=== PATIENT | female | born 1950 | race Caucasian/White ===

== ENCOUNTER → 2016-06-06 | Outpatient (CLI) | payer OTHER ==
--- NOTE | 2016-06-06 11:30 | MM ---
Reason for exam: history of breast cancer, mastectomy. Last mammogram was performed 1 year and 1 month ago. History: Patient is postmenopausal and has history of breast cancer at age 54. Family history of breast cancer in maternal grandmother at age 60. Silicone gel implant in the right breast, 2008. Reconstruction of the right breast, 2008. Reduction of the left breast, 2008. Mastectomy of the right breast, April 18, 2005. Malignant right mammotome panel of the right breast, March 24, 2005. Chemotherapy, 2005. Benign excisional biopsy of the right breast, February 26, 1998. Took tamoxifen for 7 years beginning at age 54. Physical Findings: Nurse did not find any significant physical abnormalities on exam. MG Diagnostic Mammo LT w CAD CC, MLO, ML, and XCCL view(s) were taken of the left breast. Prior study comparison: May 18, 2015, left breast MG 3d diag mammo w/cad LT. May 14, 2014, left breast MG diagnostic mammo LT w CAD. There are scattered fibroglandular densities. No significant new findings when compared with previous films. These results were verbally communicated with the patient and result sheet given to the patient on 06/06/16. ASSESSMENT: Benign, BI-RAD 2 RECOMMENDATION: Follow-up diagnostic mammogram of the left breast in 1 year.
== END | disposition home or self-care (01) ==
LOC: RADMAMWWP 10:22
PROVIDERS: ATTEND Family Medicine
DX: Z85.3 Personal history of malignant neoplasm of breast (principal)

== ENCOUNTER → 2017-06-07 | Outpatient (CLI) | payer MEDICARE ==
--- NOTE | 2017-06-07 11:06 | MM ---
Reason for exam: additional evaluation requested from prior study. Last mammogram was performed 1 year ago. History: Patient is postmenopausal and has history of breast cancer at age 54. Family history of breast cancer in maternal grandmother at age 60. Silicone gel implant in the right breast, 2008. Reconstruction of the right breast, 2008. 2 reductions of the left breast, 2008. Mastectomy of the right breast, April 18, 2005. Malignant right mammotome panel of the right breast, March 24, 2005. Chemotherapy, 2005. Benign excisional biopsy of the right breast, February 26, 1998. Took tamoxifen for 7 years beginning at age 54. Physical Findings: Nurse did not find any significant physical abnormalities on exam. MG Diagnostic Mammo LT w CAD CC and MLO view(s) were taken of the left breast. Prior study comparison: June 06, 2016, left breast MG diagnostic mammo LT w CAD. May 18, 2015, left breast MG 3d diag mammo w/cad LT. There are scattered fibroglandular densities. Post mammoplasty changes. Small area of fat necrosis calcifications stable. No significant new findings when compared with previous films. These results were verbally communicated with the patient and result sheet given to the patient on 06/07/17. ASSESSMENT: Negative, BI-RAD 1 RECOMMENDATION: Routine screening mammogram of the left breast in 1 year.
== END | disposition home or self-care (01) ==
LOC: RADMAMWWP 08:57
PROVIDERS: ATTEND Internal Medicine Hematology & Oncology
DX: Z08 Encounter for follow-up examination after completed treatment for malignant neoplasm (principal); Z85.3 Personal history of malignant neoplasm of breast
CPT/HCPCS: 77065

== ENCOUNTER → 2018-06-11 | Outpatient (CLI) | payer MEDICARE ==
--- NOTE | 2018-06-12 08:52 | MM ---
Reason for exam: screening (asymptomatic). Last mammogram was performed 1 year ago. History: Patient is postmenopausal and has history of breast cancer at age 54. Family history of breast cancer in maternal grandmother at age 60. Silicone gel implant in the right breast, 2008. Reconstruction of the right breast, 2008. 2 reductions of the left breast, 2008. Mastectomy of the right breast, April 18, 2005. Malignant right mammotome panel of the right breast, March 24, 2005. Chemotherapy, 2005. Benign excisional biopsy of the right breast, February 26, 1998. Took tamoxifen for 7 years beginning at age 54. Physical Findings: A clinical breast exam by your physician is recommended on an annual basis and results should be correlated with mammographic findings. MG Screen Jerad Unilateral W/Cad Bilateral CC and MLO view(s) were taken. Prior study comparison: June 07, 2017, left breast MG diagnostic mammo LT w CAD. June 06, 2016, left breast MG diagnostic mammo LT w CAD. Finding #1: There is a 7 mm equal density (isodense) mass in the left breast. Finding #2: There are typically benign calcifications in the left breast. ASSESSMENT: Incomplete: need additional imaging evaluation, BI-RAD 0 RECOMMENDATION: Special view mammogram of the left breast. If lesion persists on supplemental views, image directed ultrasound is recommended. [facility] will attempt to contact patient to return for supplemental views and ultrasound if indicated.
== END | disposition home or self-care (01) ==
LOC: RADMAMWWP 12:25
PROVIDERS: ATTEND Internal Medicine Hematology & Oncology
DX: Z12.31 Encounter for screening mammogram for malignant neoplasm of breast (principal); Z90.11 Acquired absence of right breast and nipple
CPT/HCPCS: 77067

== ENCOUNTER → 2018-06-18 | Outpatient (CLI) | payer MEDICARE ==
--- NOTE | 2018-06-18 13:27 | MM ---
Reason for exam: additional evaluation requested from abnormal screening. Last mammogram was performed less than 1 month ago. History: Patient is postmenopausal and has history of breast cancer at age 54. Family history of breast cancer in maternal grandmother at age 60. Silicone gel implant in the right breast, 2008. Reconstruction of the right breast, 2008. 2 reductions of the left breast, 2008. Radiation therapy of the left breast, 2008. Mastectomy of the right breast, April 18, 2005. Malignant right mammotome panel of the right breast, March 24, 2005. Chemotherapy, 2005. Benign excisional biopsy of the right breast, February 26, 1998. Took tamoxifen for 7 years beginning at age 54. Physical Findings: Nurse Summary: 0.5 x 0.5cm nodule in the left breast at 10 o'clock (nurse ts). MG Work Up Mamm w CAD LT Spot compression CC, spot compression MLO, and LM view(s) were taken of the left breast. Prior study comparison: June 11, 2018, bilateral MG screen jennifer unilateral w/cad. June 07, 2017, left breast MG diagnostic mammo LT w CAD. There are scattered fibroglandular densities. There is no discrete abnormality. These results were verbally communicated with the patient and result sheet given to the patient on 06/18/18. ASSESSMENT: Benign, BI-RAD 2 RECOMMENDATION: Follow-up diagnostic mammogram of the left breast in 1 year. Manage patient on a clinical basis.
== END ==
LOC: RADMAMWWP 12:34
PROVIDERS: ATTEND Internal Medicine Hematology & Oncology
DX: R92.8 Other abnormal and inconclusive findings on diagnostic imaging of breast (principal)
CPT/HCPCS: 77065

== ENCOUNTER → 2018-10-12 | Outpatient (CLI) | payer MEDICARE ==
--- NOTE | 2018-10-12 13:24 | CT ---
EXAMINATION TYPE: CT sinus wo con DATE OF EXAM: 10/12/2018 COMPARISON: None HISTORY: sinus infection, congestion, drainage, headache. CT DLP: 667.3 mGycm. Automated Exposure Control for Dose Reduction was Utilized. TECHNIQUE: CT scan of the sinuses is performed without contrast, axial images are obtained, coronal r eformatted images are also reviewed. FINDINGS: The paranasal sinuses are remarkable for extensive inflammatory change involving the bilat eral maxillary sinus, right frontal sinus, ethmoid air cells and sphenoid sinus. Ostiomeatal units sh ow normal soft tissue bilaterally. The ostiomeatal complex is patent bilaterally on the coronal image s. Visualized portion of mastoid air cells show no abnormal opacification. The globes are intact bilate rally. IMPRESSION: Pansinusitis.
== END | disposition home or self-care (01) ==
LOC: RADCTMAIN 12:08
PROVIDERS: ATTEND Internal Medicine
DX: J32.4 Chronic pansinusitis (principal)
CPT/HCPCS: 70486

== ENCOUNTER → 2019-01-28 | Outpatient (CLI) | payer MEDICARE ==
--- NOTE | 2019-01-29 12:57 | US ---
EXAMINATION TYPE: US thyroid st tissue head/neck DATE OF EXAM: 01/28/2019 COMPARISON: 08/19/2010 CLINICAL HISTORY: 68-year-old female R94.6 Abn thyroid labs. TECHNIQUE: Multiple sonographic images of the thyroid gland are obtained. FINDINGS: GLAND SIZE: Right Lobe: 7.5 x 2.1 x 3.0 cm Overall Parenchyma: heterogenous Left Lobe: 7.1 x 2.5 x 2.5cm Overall Parenchyma: heterogeneous Isthmus Thickness: 0.6 cm NODULES RIGHT: # of nodules measured on right: 1. 1.6 X 1.2 x 1.4 cm hypoechoic mixed nodule at the upper pole with well-defined margins. This no dule is wider than tall and shows no intranodular vascularity. Prior size: 0.7 x 0.5 x 0.7 cm 2. 1.4 X 0.8 x 1.4 cm hypoechoic mixed nodule at the upper pole with well-defined margins. This nodu le is wider than tall and shows no intranodular vascularity. Prior size: 0.8 x 0.6 x 0.8 cm 3. 1.1 X 0.6 x 0.8 cm isoechoic mixed nodule at the medial pole with poorly defined margins. This n odule is taller than wide and shows no intranodular vascularity. Prior size: 0.8 x 0.5 x 1.0 cm 4. 1.0 X 0.6 x 1.0 cm hypoechoic mixed nodule at the lower pole with well-defined margins. This nod ule is wider than tall and shows intranodular vascularity. Prior size: 1.0 x 0.8 x 0.8 cm LEFT: # of nodules measured on left: 1. 1.6 X 1.1 x 1.5 cm isoechoic mixed nodule at the upper pole with well-defined margins. This nod ule is wider than tall and shows no intranodular vascularity. Not clearly seen previously. 2. 1.6 X 1.4 x 1.3 cm hypoechoic mixed nodule at the mid pole with poorly defined margins; peripher al calcification. This nodule is wider than tall and shows no intranodular vascularity. Prior size 1.7 x 1.6 x 1.5 cm. ISTHMUS: # of nodules measured in the isthmus: 0 Bilateral neck scanned, no evidence of lymphadenopathy. Patient has innumerable nodules bilaterally. Largest on each side measured. IMPRESSION: 1. Findings suggest multinodular goiter with innumerable bilateral nodules. The largest are measured on each side measuring up to 1.6 cm on the right and 1.6 cm on the left. 2. Overall, these have increased in size to varying degrees as compared to 2011. For example, the dom inant 1.6 cm nodule in the right upper pole previously measured 7 mm. A dominant 1.6 cm nodule in the left upper pole was not clearly seen previously. Additional follow-up as indicated. 3. The other dominant 1.6 cm left midpole, partially calcified nodule appears to have remained stable .
== END | disposition home or self-care (01) ==
LOC: RADUSWWP 13:33
PROVIDERS: ATTEND Internal Medicine
DX: E04.1 Nontoxic single thyroid nodule (principal)
CPT/HCPCS: 76536

== ENCOUNTER → 2019-04-18 | Outpatient (CLI) | payer MEDICARE ==
[2019-04-18 16:17] LABS: T4, Free (Free Thyroxine) 1.1 ng/dL (0.80-1.80)
== END | disposition home or self-care (01) ==
LOC: LABWHC1 09:31
PROVIDERS: ATTEND Internal Medicine Endocrinology, Diabetes & Metabolism
DX: E04.2 Nontoxic multinodular goiter (principal)
CPT/HCPCS: 36415; 84439; 84443; 84480

== ENCOUNTER → 2019-10-22 | Outpatient (CLI) | payer MEDICARE ==
--- NOTE | 2019-10-22 11:09 | MM ---
Reason for exam: additional evaluation requested from prior study. Last mammogram was performed 1 year and 4 months ago. History: Patient is postmenopausal and has history of breast cancer at age 54. Family history of breast cancer in maternal grandmother at age 60. Silicone gel implant in the right breast, 2008. Reconstruction of the right breast, 2008. 2 reductions of the left breast, 2008. Radiation therapy of the left breast, 2008. Mastectomy of the right breast, April 18, 2005. Malignant right mammotome panel of the right breast, March 24, 2005. Chemotherapy, 2005. Benign excisional biopsy of the right breast, February 26, 1998. Took hormonal contraceptives for 15 years. Took tamoxifen for 7 years beginning at age 54. Physical Findings: Nurse did not find any significant physical abnormalities on exam. MG 3D Diag Mammo W/Cad LT CC and MLO view(s) were taken of the left breast. Prior study comparison: June 18, 2018, left breast MG work up mamm w CAD LT. June 11, 2018, bilateral MG screen jennifer unilateral w/cad. The breast tissue is heterogeneously dense. This may lower the sensitivity of mammography. Benign appearing calcifications in the left breast. There is chronic nodularity in the left breast, stable, benign lymph node. These results were verbally communicated with the patient and result sheet given to the patient on 10/22/19. ASSESSMENT: Benign, BI-RAD 2 RECOMMENDATION: Follow-up diagnostic mammogram of the left breast in 1 year.
== END | disposition home or self-care (01) ==
LOC: RADMAMWWP 10:21
PROVIDERS: ATTEND Internal Medicine Hematology & Oncology
DX: Z08 Encounter for follow-up examination after completed treatment for malignant neoplasm (principal); Z85.3 Personal history of malignant neoplasm of breast
CPT/HCPCS: 77065; G0279; 77061

== ENCOUNTER 2020-07-15 07:53 | Day surgery (SDC) | payer MEDICARE ==
[2020-07-14 10:05] VITALS: BMI 19.3
--- NOTE | 2020-07-14 19:20 | P.GSHP ---
History of Present Illness H&P Date: 07/14/20 69 yo femae who recetly presented to [facility] with severe left flank pain. SHe was evaluated and found to have a 13mm left mid ureteral stone with chronic , mod- severe hydronephrosis. THis is the patients first stone. She denies previous problems with pain, hematuria and utis. We discussed treatment options. GIven the size of the stone and the amount of hydronephrosis I recommend a left ureteroscopy with laser lithotripsy and stent placement.The risks of chronic damage infection , bleeding , pain and stricture have been explained understood and accepted. - Constitutional Constitutional: Denies chills, Denies fever - EENT Eyes: denies blurred vision, denies pain Ears, nose, mouth and throat: Denies headache, Denies sore throat - Cardiovascular Cardiovascular: Denies chest pain, Denies shortness of breath - Respiratory Respiratory: Denies cough, Denies 7 - Gastrointestinal Gastrointestinal: Denies abdominal pain, Denies diarrhea, Denies nausea, Denies vomiting - Genitourinary (Female) Genitourinary: Denies dysuria, Denies hematuria - Genitourinary (Male) Genitourinary: Denies dysuria, Denies hematuria - Musculoskeletal Musculoskeletal: Denies myalgias - Integumentary Integumentary: Denies pruritus, Denies rash - Neurological Neurological: Denies numbness, Denies weakness - Psychiatric Psychiatric: Denies anxiety, Denies depression - Endocrine Endocrine: Denies fatigue, Denies weight change Past Medical History Past Medical History: Cancer, Thyroid Disorder Additional Past Medical History / Comment(s): received both covid vaccines,kidney stones,breast CA 2005-no radiation-received chemo History of Any Multi-Drug Resistant Organisms: None Reported Additional Past Surgical History / Comment(s): rt mastectomy,rt breast breast reconstruction Past Anesthesia/Blood Transfusion Reactions: No Reported Reaction Smoking Status: Former smoker - Past Family History Mother Additional Family Medical History / Comment(s): aneurysm Father Additional Family Medical History / Comment(s): bone CA Medications and Allergies Home Medications Medication Instructions Recorded Confirmed Type Calcium Carbonate/Vitamin D3 1 each PO DAILY 07/14/20 07/14/20 History [Calcium 600-Vit D3 12.5 Mcg (500 Iu)] HYDROcodone/APAP 5-325MG [[place] 1 tab PO Q6HR PRN 07/14/20 07/14/20 History 5-325] Ibuprofen 600 mg PO Q6H PRN 07/14/20 07/14/20 History Multivit-Min/Iron/Folic/Lutein 1 each PO DAILY 07/14/20 07/14/20 History [Centrum Silver Women Tablet] Pravastatin Sodium [Pravachol] 20 mg PO DAILY 07/14/20 07/14/20 History Tamsulosin HCl [Flomax] 0.4 mg PO QAM 07/14/20 07/14/20 History Venlafaxine HCl ER [Effexor Xr] 75 mg PO QAM 07/14/20 07/14/20 History methIMAzole [Tapazole] 5 mg PO QAM 07/14/20 07/14/20 History Allergies Allergy/AdvReac Type Severity Reaction Status Date / Time No Known Allergies Allergy Verified 07/14/20 09:51 Surgical - Exam - General well developed, well nourished, no distress - Eyes PERRL - ENT normal pinna, no hearing loss - Neck no masses, trachea midline - Respiratory normal expansion, normal respiratory effort - Cardiovascular Rhythm: regular - Abdomen Abdomen: soft, non tender - Integumentary no rash, no growths - Neurologic normal coordination, normal sensation - Musculoskeletal normal gait, normal posture - Psychiatric oriented to time, oriented to person, oriented to place, speech is normal, memory intact Results - Imaging Abdominal x-ray: report reviewed, image reviewed CT scan - abdomen: report reviewed, image reviewed CT scan - pelvis: report reviewed, image reviewed Assessment and Plan Assessment: Impression: left ureteral calculous with chronic and severe hydronephrosis. Plan: Left ureteroscopy with laser lithotripsy and stent placement
[~2020-07-15 07:53] MED LIST: LACTATED RINGERS 1,000 ML IV SCH
--- NOTE | 2020-07-15 08:09 | XR ---
EXAMINATION TYPE: XR KUB DATE OF EXAM: 07/15/2020 8:02 AM CLINICAL HISTORY: Kidney stones. TECHNIQUE: Single supine KUB image of the abdomen is obtained. COMPARISON: None. FINDINGS: There is a 15 mm oval density over the left mid sacrum inferior sacroiliac joint level coul d reflect large distal ureter calculus. No additional renal calculi clearly seen bilaterally. Moderat e overlying colonic fecal material makes evaluation suboptimal. Overall nonobstructive bowel gas pattern. Visualized osseous structures are intact. Rounded 8 mm dens ity right upper quadrant could reflect a gallstone. IMPRESSION: As above.
[2020-07-15 08:25] VITALS: RESP 16
[2020-07-15] MEDS ORDERED: LIDOCAINE 1% (10MG/ML) FOR IV START INTRADERMA ONE (08:41)
[2020-07-15] MEDS ORDERED: ONDANSETRON 4 MG/2 ML VIAL ONE (08:46)
[2020-07-15] MEDS ORDERED: DEXAMETHASONE SOD PHOSPHATE 4 MG/ML 1 ML VIAL IVP ONE (08:50)
[2020-07-15] MEDS ORDERED: ONDANSETRON 4 MG/2 ML VIAL IVP ONE (08:50)
[2020-07-15] MEDS ORDERED: LIDOCAINE 1% INJ 10MG/ML (20 ML MDV) ONE (09:13)
[2020-07-15] MEDS ORDERED: PHENYLEPHRINE-0.9% NACL SYG 1,000 MCG/10 ML SYRINGE ONE (09:13)
[2020-07-15] MEDS ORDERED: fentaNYL (PF) 50 MCG/ML 2 ML AMP ONE (09:13)
[2020-07-15] MEDS ORDERED: PROPOFOL 10 MG/ML 20 ML VIAL IV ONE (09:13)
[2020-07-15] MEDS ORDERED: SUCCINYLCHOLINE CHLORIDE 100 MG/5 ML SYR IV ONE (09:13)
[2020-07-15] MEDS ORDERED: MIDAZOLAM 2 MG/2 ML VIAL ONE (09:13)
[2020-07-15] MEDS ORDERED: LACTATED RINGERS 1,000 ML IV ONE (10:18)
--- NOTE | 2020-07-15 10:27 | P.OP ---
Date of Procedure: 07/15/20 Preoperative Diagnosis: Left ureteral calculus, large Postoperative Diagnosis: Same Procedure(s) Performed: Cystoscopy, left ureteroscopy with laser lithotripsy, placement of 6 x 24 double-J catheter Anesthesia: MARCE Surgeon: Jude Bob Estimated Blood Loss (ml): 0 Pathology: other (Stone) Condition: stable Disposition: PACU Indications for Procedure: The patient is 69. She developed severe left flank pain. She came in the emergency room with a 1.3 cm midureteral stone with what appeared to be chronic obstruction. She comes ureteroscopy laser lithotripsy Description of Procedure: Patient brought to the operative suite. She is given a general anesthetic. She's placed lithotomy position with sterile prep and drape. Cystoscopy Foroblique lens and 21-Albanian sheath identifies a normal urethra. The ureteral orifices normal. The bladder mucosa is unremarkable. The ureteral orifice on the left is too small to allow the 7-Albanian mini ureteroscope to intubate that. I thus dilated the orifice with a 10 cone-tip catheter. I then pass a semirigid scope up to the stone. With the 360 laser probe into tiny fragments and flushed out of the ureter. There are some larger fragments that remained in are basketed with a 1.90 tip stone basket. At the end of procedure other than sand there are no remaining stones that. Through the ureteroscope and 035 wires passed up into the kidney. I removed the ureteroscope and over the ureteroscope a left 6 x 24 double-J catheter that coils in the left renal pelvis and the bladder. The bladder strain. Stones are sent to pathology. The patient's awake and returned recovery room good condition. She tolerated procedure well be discharged home upon recovery. She'll follow in the office in 2 weeks for stent removal.
[2020-07-15 10:38] VITALS: TEMP 97
[2020-07-15 12:24] VITALS: BP 141/78; PULSE 78
--- NOTE | 2020-07-15 17:15 | FL ---
EXAMINATION TYPE: FL guidance operating room DATE OF EXAM: 07/15/2020 CLINICAL HISTORY: Left ureteral stone TECHNIQUE: Fluoroscopy. COMPARISON: None. FINDINGS: Fluoroscopic guidance was provided during procedure performed by Dr. Jude Bob. A tota l of 11 seconds of fluoroscopic time was utilized during the procedure and 2 spot images was acquired . Spot images demonstrate placement of left ureteral stent. IMPRESSION: As Above.
== END 2020-07-15 12:26 | disposition home or self-care (01) ==
LOC: OR 07:53
PROVIDERS: ATTEND Urology
DX: N13.2 Hydronephrosis with renal and ureteral calculous obstruction (principal); E07.9 Disorder of thyroid, unspecified; Z87.442 Personal history of urinary calculi; Z85.3 Personal history of malignant neoplasm of breast; Z92.21 Personal history of antineoplastic chemotherapy; Z90.11 Acquired absence of right breast and nipple; Z87.891 Personal history of nicotine dependence; Z82.49 Family history of ischemic heart disease and other diseases of the circulatory system; Z80.8 Family history of malignant neoplasm of other organs or systems; Z79.890 Hormone replacement therapy; Z79.899 Other long term (current) drug therapy
CPT/HCPCS: 52356; 82365; 74018; C2625; C1758; C1769; J2250; J1100; J2405; J0690; J2001; J3010; J2370; J0330; J2704

== ENCOUNTER → 2020-10-23 | Outpatient (CLI) | payer MEDICARE ==
--- NOTE | 2020-10-23 13:43 | MM ---
Reason for exam: additional evaluation requested from prior study. Last mammogram was performed 1 year ago. History: Patient is postmenopausal and has history of breast cancer at age 54. Family history of breast cancer in maternal grandmother at age 60. Silicone gel implant in the right breast, 2008. Reconstruction of the right breast, 2008. 2 reductions of the left breast, 2008. Radiation therapy of the left breast, 2008. Mastectomy of the right breast, April 18, 2005. Malignant right mammotome panel of the right breast, March 24, 2005. Chemotherapy, 2005. Benign excisional biopsy of the right breast, February 26, 1998. Took hormonal contraceptives for 15 years. Took tamoxifen for 7 years beginning at age 54. Physical Findings: Nurse did not find any significant physical abnormalities on exam. MG Diagnostic Mammo LT w CAD CC, MLO, XCCL, CC with magnification, and ML with magnification view(s) were taken of the left breast. Prior study comparison: October 22, 2019, left breast MG 3d diag mammo w/cad LT. June 11, 2018, bilateral MG screen jennifer unilateral w/cad. June 07, 2017, left breast MG diagnostic mammo LT w CAD. The breast tissue is heterogeneously dense. This may lower the sensitivity of mammography. Finding: There are new fine grouped/clustered calcifications in the 9 o'clock anterior, subareolar position of the left breast 1.5cm from the nipple. New finding since October 22, 2019, June 11, 2018, and June 07, 2017. These results were verbally communicated with the patient and result sheet given to the patient on 10/23/20. ASSESSMENT: Suspicious, BI-RAD 4 RECOMMENDATION: Surgical consultation of the left breast. Suspicious breast calcifications are new, surgical consultation recommended. Called Dr. Elizabeth's office with mammographic findings and has scheduled an appointment for the patient for 11/27/20 at 1:[address] Vinson. PRELIMINARY REPORT CALLED AND FAXED TO DR. VINSON ON 10/23/20.
== END | disposition home or self-care (01) ==
LOC: RADMAMWWP 10:56
PROVIDERS: ATTEND Internal Medicine Hematology & Oncology
DX: R92.8 Other abnormal and inconclusive findings on diagnostic imaging of breast (principal); Z85.3 Personal history of malignant neoplasm of breast
CPT/HCPCS: 77065

== ENCOUNTER → 2020-12-03 | Outpatient (CLI) | payer MEDICARE ==
[2020-12-03 13:21] VITALS: BP 110/60; PULSE 67; RESP 12; TEMP 98.2
--- NOTE | 2020-12-03 13:33 | P.GSHP ---
History of Present Illness H&P Date: 12/03/20 Chief Complaint: Abnormal left breast mammogram Danae is a 70 year old white female seen in consultation for Dr. Elizabeth regarding an abnormal left breast mammogram. She was diagnosed with a right breast cancer at the age of 54. She underwent a right breast mastectomy by Dr. Lockett in 2005 and has a implant reconstruction 2008. At that time a reduction was done on the left side. She states the original tumor was small and there were no lymph nodes involved. She had approximately 8-10 sessions of chemotherapy was done by Dr. Elizabeth. She did not have any radiation therapy. She took tamoxifen for 5 years afterwards[place] [id number] there were no fine group clustered calcifications in the 9:00 anterior subareolar position of the left breast 1.5 cm from the nipple. No other new findings were identified. She does not feel any lumps masses or nodules in her breast. 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 Social History: nicotine: since alcohol: none drugs: none - Constitutional Comment: patient on effexor Constitutional: Denies chills, Denies fever - EENT Eyes: denies blurred vision, denies pain Ears: bilateral: decreased hearing, deny: tinnitus Ears, nose, mouth and throat: Denies headache, Denies sore throat - Breasts Breasts: bilateral: as per HPI - Cardiovascular Comment: racing heart Cardiovascular: Reports chest pain, Denies shortness of breath - Respiratory Comment: smokers cough Respiratory: Denies cough, Denies 7 - Gastrointestinal Gastrointestinal: Denies abdominal pain, Denies diarrhea, Denies nausea, Denies vomiting - Genitourinary (Female) Genitourinary: Reports kidney stones, Denies dysuria, Denies hematuria - Menstruation Menstruation: Reports postmenopausal - Musculoskeletal Musculoskeletal: Denies myalgias - Integumentary Integumentary: Denies pruritus, Denies rash - Neurological Neurological: Denies numbness, Denies weakness - Psychiatric Psychiatric: Reports anxiety, Reports depression - Endocrine Endocrine: Reports fatigue, Reports weight change - Hematologic/Lymphatic Comment: none - Allergic/Immunologic Allergic/Immunologic: Reports seasonal allergies Past Medical History Past Medical History: Cancer, Thyroid Disorder Additional Past Medical History / Comment(s): received both covid vaccines,kidney stones,breast CA 2005-no radiation-received chemo History of Any Multi-Drug Resistant Organisms: None Reported Additional Past Surgical History / Comment(s): rt mastectomy,rt breast breast reconstruction Past Anesthesia/Blood Transfusion Reactions: No Reported Reaction Smoking Status: Former smoker - Past Family History Mother Additional Family Medical History / Comment(s): aneurysm Father Additional Family Medical History / Comment(s): bone CA Medications and Allergies Home Medications Medication Instructions Recorded Confirmed Type Calcium Carbonate/Vitamin D3 1 each PO DAILY 07/14/20 07/14/20 History [Calcium 600-Vit D3 12.5 Mcg (500 Iu)] HYDROcodone/APAP 5-325MG [War 1 tab PO Q6HR PRN 07/14/20 07/15/20 History 5-325] Ibuprofen 600 mg PO Q6H PRN 07/14/20 07/14/20 History Multivit-Min/Iron/Folic/Lutein 1 each PO DAILY 07/14/20 07/14/20 History [Centrum Silver Women Tablet] Pravastatin Sodium [Pravachol] 20 mg PO DAILY 07/14/20 07/15/20 History Tamsulosin HCl [Flomax] 0.4 mg PO QAM 07/14/20 07/14/20 History Venlafaxine HCl ER [Effexor Xr] 75 mg PO QAM 07/14/20 07/14/20 History methIMAzole [Tapazole] 5 mg PO QAM 07/14/20 07/14/20 History Allergies Allergy/AdvReac Type Severity Reaction Status Date / Time No Known Allergies Allergy Verified 07/15/20 08:17 Surgical - Exam BMI 18.2 - General no distress - Eyes normal ocular movement - ENT no hearing loss, no congestion - Neck trachea midline - Respiratory normal respiratory effort, clear to auscultation - Cardiovascular Rhythm: regular Heart Sounds: normal: S1, S2 - Abdomen Abdomen: soft, non tender, no guarding, no rigid, no rebound - Integumentary normal turgor - Neurologic no disoriented, no combative - Musculoskeletal normal gait, normal posture - Psychiatric oriented to time, oriented to person, oriented to place, speech is normal, memory intact Breast Exam: BRA: 34C inspection: Asymmetry related to prior right breast mastectomy and left breast reduction/ptosis grade 2 right breast grade 2/3 left breast Palpation: Right breast: Right chest wall no evidence of any recurrent cancer Right axilla: No adenopathy of concern Left breast: Reveals scars from prior reduction mammoplasty no dominant masses or nodules of concern Left axilla: No adenopathy of concern Results Mammogram new area of calcification left breast recommend biopsy Assessment and Plan Assessment: Impression: 1. Patient status post right breast mastectomy/chemotherapy/reconstruction for an invasive ductal carcinoma in 2005 2. Recent left breast radiographic abnormality 3. Anxiety/depression 4. Recent onset of cardiac palpitations Plan: 1. I will review the radiographs with the radiologist to see if this can be done percutaneously 2. Patient has appointment with cardiology Cc: Dr. Rivera, Dr. Elizabeth
== END ==
LOC: WWCWWP 12:59
PROVIDERS: ATTEND Surgery
DX: R92.8 Other abnormal and inconclusive findings on diagnostic imaging of breast (principal); F41.9 Anxiety disorder, unspecified; F32.9 Major depressive disorder, single episode, unspecified; R00.2 Palpitations; Z90.11 Acquired absence of right breast and nipple; Z92.21 Personal history of antineoplastic chemotherapy; Z87.891 Personal history of nicotine dependence

== ENCOUNTER → 2021-01-21 | Day surgery (SDC) | payer MEDICARE ==
[2021-01-21 07:30] VITALS: BP 104/56; PULSE 75; RESP 16; TEMP 98.1
--- NOTE | 2021-01-21 08:53 | P.PN ---
Progress Note - Text Progress Note Date: 01/21/21 An attempt was made to do a stereotactic core biopsy for Danae Rahman. The microcalcifications of concern in the left breast were difficult to see on her mammogram which was reviewed with Dr. Panda. A CC from below approach and medial to lateral ship erector film was performed in an attempt to identify the microcalcifications of concern. These calcifications could not be seen with certainty. The ship erector views were reviewed with radiology. It was felt that the best approach would be a 3-D stereo biopsy. If 3-D stereo biopsy were not able to be performed we would consider needle localization and excisional biopsy. This was explained to the patient. The patient is going to be scheduled for a 3-D stereotactic core biopsy. She will follow up after the biopsy is performed.
--- NOTE | 2021-01-21 08:54 | MM ---
EXAMINATION TYPE: MG discontinued stereo core LT DATE OF EXAM: 01/21/2021 COMPARISON: 10/23/2020 mammogram CLINICAL HISTORY: Abnormal mammogram, calcification TECHNIQUE: Stereotactic guided core biopsy of left breast. FINDINGS: Radiology assisted with targeting. Lateral and inferior craniocaudal approaches could not reliably id entify the calcifications within the anterior left breast. This may be due to visualization limitatio ns on the stereotactic device. In consultation with surgeon, 3-D stereotactic core biopsy is recommen ded. Procedure was terminated prior to skin incision. IMPRESSION: 1. Unsuccessful stereotactic core biopsy, procedure terminated prior to skin incision. 2. Patient will be rescheduled for 3-D stereotactic core biopsy.
== END ==
LOC: RADMAMWWP 06:59
PROVIDERS: ATTEND Surgery
DX: R92.8 Other abnormal and inconclusive findings on diagnostic imaging of breast (principal)

== ENCOUNTER → 2021-09-22 | Outpatient (CLI) | payer MEDICARE ==
--- NOTE | 2021-09-22 09:04 | MM ---
Reason for Exam: Follow-up at short interval from prior study. Last screening mammogram was performed 11 month(s) ago. Patient History: Menarche at age 15. First Full-Term at age 22. Postmenopausal. Breast cancer, right, age 54. Previous chemotherapy at age 54. Patient used Hormonal Contraceptives for 15 years. Tamoxifen for 7 years from age 54 until age 61. 2004, Mastectomy on the Right side. 2008, Reduction on the Left side. 04/18/2005, Mastectomy on the Right side. 2008, Reduction on the Left side. 03/24/2005, Malignant Core Biopsy on the right side. 02/26/1998, Benign Excisional Biopsy on the right side. 02/25/2021, MG discontinued stereo core LT on the left side. 2005, Chemotherapy. 01/21/2021, MG discontinued stereo core LT on the left side. 2008, Implant on the right side. 2008, Implant on the right side. Maternal grandmother had breast cancer, age 60. Prior Study Comparison: 06/18/2018 Left Diagnostic Mammogram, [facility]. 10/22/2019 Left Diagnostic Mammogram, [facility]. 10/23/2020 Left Diagnostic Mammogram, [facility]. Tissue Density: Left: The breast tissue is heterogeneously dense. This may lower the sensitivity of mammography. Findings: Analyzed By CAD. There are few benign round and dystrophic calcifications in the left breast. No suspicious group of microcalcification or mass in the left breast. Overall Assessment: Benign, BI-RAD 2 Management: Screening Mammogram of the left breast in 1 year. A clinical breast exam by your physician is recommended on an annual basis and results should be correlated with mammographic findings. This exam should not preclude additional follow-up of suspicious palpable abnormalities. Results were given to the patient verbally at the time of exam. Electronically signed and approved by: Dilip Rooney M.D.
== END | disposition home or self-care (01) ==
LOC: RADMAMWWP 08:25
PROVIDERS: ATTEND Surgery
DX: R92.8 Other abnormal and inconclusive findings on diagnostic imaging of breast (principal); Z78.0 Asymptomatic menopausal state; Z85.3 Personal history of malignant neoplasm of breast; Z80.3 Family history of malignant neoplasm of breast
CPT/HCPCS: 77065

== ENCOUNTER → 2022-09-23 | Outpatient (CLI) | payer MEDICARE ==
--- NOTE | 2022-09-23 22:01 | MM ---
Reason for Exam: Hx of breast cancer, mastectomy. Last screening mammogram was performed 12 month(s) ago. Patient History: Menarche at age 15. First Full-Term at age 22. Postmenopausal. Breast cancer, right, age 54. Previous chemotherapy at age 54. Patient used Hormonal Contraceptives for 15 years. Tamoxifen for 7 years from age 54 until age 61. 2004, Mastectomy on the Right side. 2008, Reduction on the Left side. 04/18/2005, Mastectomy on the Right side. 2008, Reduction on the Left side. 03/24/2005, Malignant Core Biopsy on the right side. 02/26/1998, Benign Excisional Biopsy on the right side. 02/25/2021, MG discontinued stereo core LT on the left side. 2005, Chemotherapy. 01/21/2021, MG discontinued stereo core LT on the left side. 2008, Implant on the right side. 2008, Implant on the right side. Maternal grandmother had breast cancer, age 60. Prior Study Comparison: 10/22/2019 Left Diagnostic Mammogram, [facility]. 10/23/2020 Left Diagnostic Mammogram, [facility]. 09/22/2021 Left MG diagnostic mammo LT w CAD, [facility]. Tissue Density: Left: The breast tissue is heterogeneously dense. This may lower the sensitivity of mammography. Findings: Patient is status post right mastectomy. Unchanged few scattered punctate calcifications as well as benign gliosis calcification laterally. Some benign vascular calcifications are also present posteriorly. There is no suspicious group of microcalcifications or new suspicious mass in either breast. Overall Assessment: Benign, BI-RAD 2 Management: Screening Mammogram of the left breast in 1 year. . Patient should continue monthly self-breast exams. A clinical breast exam by your physician is recommended on an annual basis. This exam should not preclude additional follow-up of suspicious palpable abnormalities. Note on Jane scores and lifetime risk: 1. A Jane score greater than 3% is considered moderate risk. If this is the case, consider specialist referral to assess eligibility for a risk reducing agent. 2. If overall lifetime risk for the development of breast cancer is 20% or higher, the patient may qualify for future screening with alternating mammogram and breast MRI. Electronically signed and approved by: Jacek Boucher M.D. Radiologist
== END | disposition home or self-care (01) ==
LOC: RADMAMWWP 11:12
PROVIDERS: ATTEND Internal Medicine Hematology & Oncology
DX: Z12.31 Encounter for screening mammogram for malignant neoplasm of breast (principal); C50.919 Malignant neoplasm of unspecified site of unspecified female breast; M85.9 Disorder of bone density and structure, unspecified; N95.8 Other specified menopausal and perimenopausal disorders; Z71.3 Dietary counseling and surveillance; Z78.0 Asymptomatic menopausal state; Z80.3 Family history of malignant neoplasm of breast; Z85.3 Personal history of malignant neoplasm of breast
CPT/HCPCS: 77067

== ENCOUNTER → 2022-09-26 | Outpatient (CLI) | payer MEDICARE ==
--- NOTE | 2022-09-26 12:56 | XR ---
EXAMINATION TYPE: XR chest 2V DATE OF EXAM: 09/26/2022 COMPARISON: 05/09/2022 TECHNIQUE: PA and lateral views submitted. HISTORY: Cough FINDINGS: The lungs are clear and there is no pneumothorax, pleural effusion, or focal pneumonia. Heart size normal and no overt failure. Osseous structures demonstrate hypertrophic and degenerative changes of the spine. Diffuse hyperinfla tion. Biapical pleural thickening. Linear band of abnormal attenuation on the lateral view is seen mo re typical of atelectasis. Surgical clips overlying the breast are noted on the lateral view. IMPRESSION: 1. No acute process. COPD. Linear band of attenuation on the lateral view is more difficult discoid a telectasis or scarring.
== END | disposition home or self-care (01) ==
LOC: RADXRMAIN 12:30
PROVIDERS: ATTEND Internal Medicine
DX: J44.9 Chronic obstructive pulmonary disease, unspecified (principal)
CPT/HCPCS: 71046

== ENCOUNTER 2023-08-14 10:57 | Day surgery (SDC) | payer MEDICARE ==
[2023-08-10 09:43] VITALS: BMI 16.7
[~2023-08-14 10:57] MED LIST changes: +HYDROmorphone 0.5 MG/0.5 ML SYRINGE IVP PRN; -LACTATED RINGERS 1,000 ML IV SCH; +LIDOCAINE 1% (10MG/ML) FOR IV START INTRADERMA PRN; +MIDAZOLAM 2 MG/2 ML VIAL IV PRN
[2023-08-14] MEDS: IV FLUID CONTINUATION 1,000 ML IV ONE ×2 (11:17→14:03)
[2023-08-14 11:32] LABS: Glucose,Whole Blood 106 mg/dL (70-110)
[2023-08-14] MEDS: DEXAMETHASONE SOD PHOSPHATE 4 MG/ML 1 ML VIAL IV ONE (11:35)
[2023-08-14] MEDS: ONDANSETRON 4 MG/2 ML VIAL IVP ONE (11:35)
[2023-08-14] MEDS: LACTATED RINGERS 1,000 ML IV SCH (11:35)
[2023-08-14] MEDS ORDERED: SUCCINYLCHOLINE CHLORIDE 200 MG/10 ML VIAL IV ONE (12:17)
[2023-08-14] MEDS ORDERED: MIDAZOLAM 2 MG/2 ML VIAL ONE (12:17)
[2023-08-14] MEDS ORDERED: HYDROmorphone (PF) 1 MG/ML ONE (12:17)
[2023-08-14] MEDS ORDERED: fentaNYL (PF) 50 MCG/ML 2 ML AMP ONE (12:17)
[2023-08-14] MEDS ORDERED: PHENYLEPHRINE 10 MG/ML VIAL ONE (12:17)
[2023-08-14] MEDS ORDERED: PROPOFOL 10 MG/ML 20 ML VIAL IV ONE (12:17)
[2023-08-14] MEDS ORDERED: LIDOCAINE 1% INJ 10MG/ML (20 ML MDV) ONE (12:17)
[2023-08-14] MEDS ORDERED: ROCURONIUM 10 MG/ML (5 ML VIAL) IV ONE (12:17)
[2023-08-14] MEDS ORDERED: ePHEDrine 50 MG/ML 1 ML VIAL ONE (12:17)
[2023-08-14 14:53] VITALS: TEMP 97.8
[2023-08-14 15:19] VITALS: PULSE 94
[2023-08-14 15:21] VITALS: BP 144/74; RESP 16
--- NOTE | 2023-08-14 20:43 | OP ---
OPERATIVE REPORT DATE OF SERVICE : 08/14/2023 PREOPERATIVE DIAGNOSES: 1. Acquired deformity of right and left reconstructed breasts. 2. Capsular contracture, right breast. 3. Personal history of breast cancer, right breast. 4. Acquired loss of right breast inframammary fold. POSTOPERATIVE DIAGNOSES: 1. Acquired deformity of right and left reconstructed breasts. 2. Capsular contracture, right reconstructed breast. 3. Personal history of breast cancer, right breast. 4. Acquired loss of right breast inframammary fold. OPERATIVE PROCEDURES: 1. Replace right breast implant with capsulotomy for right breast reconstruction. 2. Revision of right reconstructed breast. 3. Reconstruction of right breast inframammary fold via local advancement flap, 46 square cm. 4. Revision of left reconstructed breast. 5. Augmentation of left reconstructed breast for breast reconstruction. OPERATIVE INDICATIONS: The patient is a 73-year-old female, who had undergone right-sided mastectomy procedure in 2006 and completed reconstruction process for the right breast in 2008 including reduction of the left breast to optimize shape, size, and form. She was pleased with her reconstructive outcome and had not been seen until July 2023 when she presented to the office with capsular contracture of the right reconstructed breast, significant deformity, loss of inframammary fold, and significant flattening to the left breast with significant asymmetry of the reconstructed breast. She desired to undergo further surgery to optimize shape and form for her reconstruction. She is aware of potential risks and complications related to the surgery, including those related to silicone breast implants as well as surgery such as hematoma, seroma, wound healing problems or infection. She has requested I perform the surgery. OPERATIVE PROCEDURE SUMMARY: The patient was seen in the preoperative area, markings made, procedure reviewed, all questions answered. She was transported to the operative room, where she was placed in supine position. Following induction of general anesthesia, the patient was prepped and draped in usual fashion. The surgery was initiated on the right side following the prior mastectomy scar site and transverse diagrams drawn. Incision was made with a scalpel. The skin was divided in full-thickness fashion including subcutaneous tissue and underlying graft muscle flap layers identified and skin and subcutaneous tissue flaps elevated off this. Extensive dissection was required to release contour irregularities and allow for optimal draping and shaping once completing the procedure. An incision was then made through the graft flap layer that was offset from the skin level. Incision also made transverse with cautery. This incision was made approximately 3 cm below the skin incision. At that point, no muscle flap remained. The graft layer was present, but extremely thin and attenuated and could not be dissected separately. The implant was exposed, was intact. The implant was not ruptured. The implant was removed. A capsular contracture was present mostly in the lower pole of the patient's reconstructive site to a lesser degree medially. A capsulotomy incision was made along the inferomedial and superior aspect, but not laterally. The capsule could not be dissected from surrounding tissue without causing significant trauma and the concern of injury to the overlying skin and subcutaneous tissue layers was of great concern and areas where the tissue was attenuated at the scar from. The capsular tissue was divided in a cruciate fashion in multiple locations releasing the tightness. This was completed with cautery. This was sufficient to release the capsule tightness. The inframammary fold was completely effaced on the side. The folds now were reconstructed by elevating skin, subcutaneous tissue flap to the inferior capsulotomy incision. The flap measured 23 x 2 square cm, created with cautery and then once created was elevated. They were advanced in cephalad fashion, secured to rib periosteal tissue. The area over the ribs was marked with a skin marker and then the flap inset to these locations with interrupted 2-0 Vicryl suture, creating a discrete inframammary fold in the appropriate location. Temporary breast implant sizers now opened on the field. Ultimately, a 500 mL sizer appeared optimal here. Attention was now turned towards the left breast using the lateral medial portion of reduction scar site. Incision was made with a scalpel dividing skin in full-thickness fashion and cautery used to divide subcutaneous tissue and breast parenchyma down to muscle fascia. Once pectoralis muscle fascia was identified, this layer was incised to allow entry into the deep pectoralis major muscle plane. Muscle was then elevated off the chest wall first bluntly and then with cautery releasing all inferior and medial attachment fibers until reaching the level of the nipple-areolar complex on the left side. Hemostasis was maintained with cautery. Irrigations performed. Temporary breast implant sizers were placed in the cavity and evaluated with the patient in seated-up position. Ultimately, a 280 mL sizer appeared best with purposes of symmetry to the contralateral side as well as filling the space appropriately. Additional dissection was required to release some scar tissue that had formed from the patient's reduction. This was completed with cautery with both breasts now revised in shape optimal to temporary implant sizers as evaluated with the patient in seated-up position. Incisions temporarily closed. She was returned to supine position. Temporary closure tiffanie removed. Both implant sizers removed. Cavities irrigated. Hemostasis was optimal. Gloves now changed and breast implants opened on the field. The left breast implant was a [place] MemoryGel Boost, moderate high-profile 280 mL, reference number SMHB-280, serial #[id number]. The device was open to the surgeon, irrigated with saline and using a Styles funnel no-touch technique passed in the reconstructive cavity. The parenchymal layer was then closed over the implant with interrupted 3-0 Vicryl suture. The right-sided implant was opened next. Again, this implant was [place] MemoryGel Boost breast implant measuring 500 mL, reference number SMHP-500, serial #[id number]. Device was opened to the surgeon, irrigated with saline and using Styles funnel no- touch technique passed in the reconstructive cavity. The muscle flap graft layer was approximated over the implant using interrupted short running 3-0 Vicryl suture. Both incision sites were now closed in the same fashion, approximating deep dermis using inverted interrupted 4-0 Monocryl and then completing superficial dermal epidermal closure with running 5-0 Prolene. Surgical swift cleansed with saline, dried. Postoperative bandages placed using Kerlix squares secured through Medipore tape, a size 2 white mammary support with additional gauze padding to the lateral aspects. Estimated blood loss for the procedure was 25 mL. There were no complications. MMODL / IJN: [id number] /
== END 2023-08-14 15:40 | disposition home or self-care (01) ==
LOC: OR 10:57
PROVIDERS: ATTEND Plastic Surgery
DX: T85.44XA Capsular contracture of breast implant, initial encounter (principal); N65.0 Deformity of reconstructed breast; N65.1 Disproportion of reconstructed breast; Z85.3 Personal history of malignant neoplasm of breast; Z90.11 Acquired absence of right breast and nipple; Z98.82 Breast implant status; E78.5 Hyperlipidemia, unspecified; E03.9 Hypothyroidism, unspecified; Z79.899 Other long term (current) drug therapy; Z87.891 Personal history of nicotine dependence; Y81.8 Miscellaneous general- and plastic-surgery devices associated with adverse incidents, not elsewhere classified
CPT/HCPCS: 19380; 19342; 19325; 14301; C1789; J2250; J0330; J1100; J2405; J0690; J2001; J3010; J1170; J2704; J2371

== ENCOUNTER → 2024-05-13 | Outpatient (CLI) | payer MEDICARE ==
--- NOTE | 2024-05-13 17:56 | MM ---
Reason for Exam: Screening (asymptomatic). Last mammogram was performed 1 year(s) and 8 month(s) ago. Patient History: Menarche at age 15. First Full-Term at age 22. Postmenopausal. Breast cancer, right, age 54. Previous chemotherapy at age 54. Patient used Hormonal Contraceptives for 15 years. Tamoxifen for 7 years from age 54 until age 61. 2004, Mastectomy on the Right side. 2008, Reduction on the Left side. 04/18/2005, Mastectomy on the Right side. 2008, Reduction on the Left side. 03/24/2005, Malignant Core Biopsy on the right side. 02/26/1998, Benign Excisional Biopsy on the right side. 02/25/2021, MG discontinued stereo core LT on the left side. 2005, Chemotherapy. 01/21/2021, MG discontinued stereo core LT on the left side. 2008, Implant on the right side. 2008, Implant on the right side. Maternal grandmother had breast cancer, age 60. Prior Study Comparison: 10/23/2020 Left Diagnostic Mammogram, [facility]. 09/22/2021 Left MG diagnostic mammo LT w CAD, [facility]. 09/23/2022 Left MG 3D scr jennifer unilateral w/cad., [facility]. Tissue Density: The breasts are heterogeneously dense, which may obscure small masses. Findings: Analyzed By CAD. Interval placement of retropectoral silicone implant. There is some fat necrosis calcifications noted at the left axilla. A few scattered benign round calcifications are noted. There is no suspicious group of microcalcifications or new suspicious mass in either breast. Overall Assessment: Benign, BI-RAD 2 Management: Screening Mammogram of the left breast in 1 year. Patient should continue monthly self-breast exams. A clinical breast exam by your physician is recommended on an annual basis. This exam should not preclude additional follow-up of suspicious palpable abnormalities. [facility], , 05/13/2024 5:53 PM. Electronically signed and approved by: Jacek Boucher M.D. Radiologist
== END | disposition home or self-care (01) ==
LOC: RADMAMWWP 13:54
PROVIDERS: ATTEND Internal Medicine Hematology & Oncology
DX: Z12.31 Encounter for screening mammogram for malignant neoplasm of breast (principal); C50.919 Malignant neoplasm of unspecified site of unspecified female breast; M85.9 Disorder of bone density and structure, unspecified; R92.333 Mammographic heterogeneous density, bilateral breasts; N95.8 Other specified menopausal and perimenopausal disorders; Z71.3 Dietary counseling and surveillance; Z78.0 Asymptomatic menopausal state; Z85.3 Personal history of malignant neoplasm of breast; Z92.0 Personal history of contraception; Z80.3 Family history of malignant neoplasm of breast
CPT/HCPCS: 77063; 77067